=== PATIENT | female | born 1955 | race Caucasian/White ===

== ENCOUNTER 2017-12-14 10:30 | Day surgery (SDC) | payer OTHER ==
[~2017-12-14] VITALS: Ht 162.6 cm; Wt 73.5 kg
[2017-12-14] MEDS ORDERED: methylPREDNISolone ACETATE 80 MG/ML IM ONE (10:31)
[2017-12-14] MEDS ORDERED: LIDOCAINE 2%, 20 ML MDV INJ ONE (10:31)
[2017-12-14] MEDS ORDERED: BUPIVACAINE /PF 0.25% 30 ML VIAL INJ ONE (10:31)
[2017-12-14] MEDS ORDERED: IOHEXOL 300 mgI/mL, 50 mL INFUS..BTL IV ONE (10:31)
[2017-12-14] MEDS ORDERED: MIDAZOLAM HCL 5 MG/5 ML VIAL IVP ONE (12:23)
[2017-12-14] MEDS ORDERED: DIPHENHYDRAMINE INJ 50 MG/ML VIAL IVP ONE (12:25)
[2017-12-14] MEDS ORDERED: MIDAZOLAM HCL 5 MG/5 ML VIAL ONE (16:45)
[2017-12-14 18:02] VITALS: BP_SYST 139
[2017-12-14] MEDS ORDERED: DIPHENHYDRAMINE INJ 50 MG/ML VIAL ONE (18:32)
== END 2017-12-14 13:25 | disposition home or self-care (01) ==
LOC: SDS 10:30
PROVIDERS: ATTEND Internal Medicine
DX: M51.16 Intervertebral disc disorders with radiculopathy, lumbar region (principal); Z98.890 Other specified postprocedural states; Z79.899 Other long term (current) drug therapy
CPT/HCPCS: 62323; J1040; J1200; J2001; J2250; J3490; J7120; Q9967

== ENCOUNTER 2018-03-28 09:41 | Day surgery (SDC) | payer OTHER ==
[~2018-03-28] VITALS: Ht 162.6 cm; Wt 73.0 kg
[2018-03-28] MEDS ORDERED: IOPAMIDOL 50 ML VIAL IV ONE (09:42)
[2018-03-28] MEDS ORDERED: methylPREDNISolone ACETATE 40 MG/ML IM ONE (09:42)
[2018-03-28] MEDS ORDERED: MIDAZOLAM HCL 5 MG/5 ML VIAL IVP ONE (09:42)
[2018-03-28] MEDS ORDERED: fentaNYL CITRATE/PF 100 MCG/2 ML AMP IVP ONE (09:42)
[2018-03-28] MEDS ORDERED: BUPIVACAINE /PF 0.25% 30 ML VIAL INJ ONE (09:42)
[2018-03-28] MEDS ORDERED: LIDOCAINE 2%, 20 ML MDV INJ ONE (09:42)
[2018-03-28] MEDS ORDERED: MIDAZOLAM HCL 5 MG/5 ML VIAL ONE (10:12)
[2018-03-28] MEDS ORDERED: DIPHENHYDRAMINE INJ 50 MG/ML VIAL ONE (10:13)
[2018-03-28 11:39] VITALS: BP_SYST 132
== END 2018-03-28 12:20 | disposition home or self-care (01) ==
LOC: SDS 09:41
PROVIDERS: ATTEND Internal Medicine
DX: M51.16 Intervertebral disc disorders with radiculopathy, lumbar region (principal); J45.909 Unspecified asthma, uncomplicated; E11.9 Type 2 diabetes mellitus without complications; Z79.899 Other long term (current) drug therapy; Z79.84 Long term (current) use of oral hypoglycemic drugs; Z79.4 Long term (current) use of insulin; Z98.890 Other specified postprocedural states; G89.29 Other chronic pain; M79.10 Myalgia, unspecified site
CPT/HCPCS: 62323; 82962; J1030; J1200; J2001; J2250; J3010; J3490; J7120; Q9967; 76000

== ENCOUNTER 2018-09-05 08:55 | Day surgery (SDC) | payer OTHER ==
[~2018-09-05] VITALS: Ht 162.6 cm; Wt 73.5 kg
[2018-09-05] MEDS ORDERED: methylPREDNISolone ACETATE 40 MG/ML IM ONE (08:56)
[2018-09-05] MEDS ORDERED: BUPIVACAINE /PF 0.25% 30 ML VIAL INJ ONE (08:56)
[2018-09-05] MEDS ORDERED: LIDOCAINE 2%, 20 ML MDV INJ ONE (08:56)
[2018-09-05] MEDS ORDERED: MIDAZOLAM HCL 5 MG/5 ML VIAL ONE (10:36)
[2018-09-05] MEDS ORDERED: DIPHENHYDRAMINE INJ 50 MG/ML VIAL ONE (10:37)
[2018-09-05 10:58] VITALS: BP_SYST 89
== END 2018-09-05 11:35 | disposition home or self-care (01) ==
LOC: SDS 08:55
PROVIDERS: ATTEND Internal Medicine
DX: M47.26 Other spondylosis with radiculopathy, lumbar region (principal); J45.909 Unspecified asthma, uncomplicated; E11.9 Type 2 diabetes mellitus without complications; M47.16 Other spondylosis with myelopathy, lumbar region; G89.4 Chronic pain syndrome; Z79.899 Other long term (current) drug therapy
CPT/HCPCS: 76000; 82962; J1030; J1200; J2001; J2250; J3490; J7120

== ENCOUNTER 2020-04-23 07:30 | Day surgery (SDC) | payer OTHER, SELFPAY ==
[~2020-04-23] VITALS: Ht 162.6 cm; Wt 72.6 kg
[2020-04-23 14:20] VITALS: BP_SYST 113
[2020-04-23] MEDS ORDERED: MIDAZOLAM HCL 5 MG/5 ML VIAL ONE (14:30)
[2020-04-23] MEDS ORDERED: DIPHENHYDRAMINE INJ 50 MG/ML VIAL ONE (14:30)
== END 2020-04-23 12:45 | disposition home or self-care (01) ==
LOC: SMU 07:30 → SDS 07:30
PROVIDERS: ATTEND Internal Medicine
DX: M47.26 Other spondylosis with radiculopathy, lumbar region (principal); M51.16 Intervertebral disc disorders with radiculopathy, lumbar region; J45.909 Unspecified asthma, uncomplicated; E11.9 Type 2 diabetes mellitus without complications; G89.29 Other chronic pain; Z20.828 Contact with and (suspected) exposure to other viral communicable diseases
CPT/HCPCS: 62323; 82962; J1200; J2250; U0003; 76000

== ENCOUNTER 2020-12-26 07:16 | Day surgery (SDC) | payer OTHER, SELFPAY ==
[~2020-12-26] VITALS: Ht 162.6 cm; Wt 69.9 kg
[2020-12-26] MEDS ORDERED: LIDOCAINE 2%, 20 ML MDV INJ ONE (07:17)
[2020-12-26] MEDS ORDERED: IOPAMIDOL 50 ML VIAL IV ONE (07:17)
[2020-12-26] MEDS ORDERED: methylPREDNISolone ACETATE 80 MG/ML IM ONE (07:17)
[2020-12-26] MEDS ORDERED: DEXTROSE 50% JECT 50 ML DISP.SYRIN IVP ONE (08:00)
[2020-12-26] MEDS ORDERED: MIDAZOLAM HCL 5 MG/5 ML VIAL ONE (10:23)
[2020-12-26] MEDS ORDERED: DIPHENHYDRAMINE INJ 50 MG/ML VIAL ONE (10:24)
[2020-12-26 21:25] VITALS: BP_SYST 125
== END 2020-12-26 11:30 | disposition home or self-care (01) ==
LOC: SDS 07:16 → SMU 07:17 → SDS 11:30
PROVIDERS: ATTEND Internal Medicine
DX: M51.16 Intervertebral disc disorders with radiculopathy, lumbar region (principal); M54.2 Cervicalgia; G89.4 Chronic pain syndrome; M79.10 Myalgia, unspecified site; Z79.899 Other long term (current) drug therapy
CPT/HCPCS: 36415 ×2; 62323; 82962; 87426 ×2; J1200; J2250; 76000; J1040; J2001; Q9967

== ENCOUNTER 2022-06-09 08:17 | Day surgery (SDC) | payer OTHER, MEDICAID ==
[~2022-06-09] VITALS: Ht 162.6 cm; Wt 72.6 kg
[2022-06-09] MEDS ORDERED: methylPREDNISolone ACETATE 40 MG/ML ONE (10:50)
[2022-06-09] MEDS ORDERED: IOPAMIDOL 50 ML VIAL IV ONE (10:50)
[2022-06-09] MEDS ORDERED: LIDOCAINE 2%, 20 ML MDV ONE (10:50)
[2022-06-09] MEDS ORDERED: DIPHENHYDRAMINE INJ 50 MG/ML VIAL ONE (10:50)
[2022-06-09] MEDS ORDERED: NORMAL SALINE 10 ML VIAL ONE (10:50)
[2022-06-09] MEDS ORDERED: fentaNYL CITRATE/PF 100 MCG/2 ML AMP ONE (10:53)
[2022-06-09 13:34] VITALS: BP_SYST 139
[2022-06-09] MEDS ORDERED: MIDAZOLAM HCL 5 MG/5 ML VIAL ONE (15:23)
== END 2022-06-09 12:20 | disposition home or self-care (01) ==
LOC: SDS 08:17 → SMU 08:18 → SDS 12:20
PROVIDERS: ATTEND Internal Medicine
DX: M51.16 Intervertebral disc disorders with radiculopathy, lumbar region (principal); J45.909 Unspecified asthma, uncomplicated; E11.9 Type 2 diabetes mellitus without complications; G89.4 Chronic pain syndrome; Z20.822 Contact with and (suspected) exposure to COVID-19; Z79.899 Other long term (current) drug therapy
CPT/HCPCS: 62323; 87426; 36415; 82962; J1200; J2001; J1030; J2250; J3010; Q9967; 76000

== ENCOUNTER 2023-03-16 09:26 | Day surgery (SDC) | payer OTHER, MEDICAID ==
[~2023-03-16] VITALS: Ht 162.6 cm; Wt 70.3 kg
[2023-03-16] MEDS ORDERED: DIPHENHYDRAMINE INJ 50 MG/ML VIAL ONE (12:06)
[2023-03-16] MEDS ORDERED: fentaNYL CITRATE/PF 100 MCG/2 ML AMP ONE (12:07)
[2023-03-16] MEDS: MIDAZOLAM HCL 5 MG/5 ML VIAL ONE ×2 (12:17→12:19)
[2023-03-23 13:15] VITALS: BP_SYST 130; PULSE 74; RESP 14
== END 2023-03-16 13:45 | disposition home or self-care (01) ==
LOC: SDS 09:26
PROVIDERS: ATTEND Internal Medicine
DX: M47.26 Other spondylosis with radiculopathy, lumbar region (principal); M47.16 Other spondylosis with myelopathy, lumbar region; M51.16 Intervertebral disc disorders with radiculopathy, lumbar region; J45.909 Unspecified asthma, uncomplicated; E11.9 Type 2 diabetes mellitus without complications; M54.2 Cervicalgia; M79.10 Myalgia, unspecified site; G89.4 Chronic pain syndrome; Z79.899 Other long term (current) drug therapy
CPT/HCPCS: 62323; 82948; J2250; J3010; 76000; 82962; J1200